=== PATIENT | male | born 1980 | race Caucasian/White ===

== ENCOUNTER 2023-12-21 10:03 | Emergency (ER) | payer OTHER ==
[~2023-12-21] VITALS: Ht 172.7 cm; Wt 68.0 kg
[~2023-12-21 10:03] MED LIST: AMOCLA875 PO; CEPH500 PO; DIVA250EC PO; HYDACE5 PO; INCARCERATION; NAPR500 PO; SULTRIDS PO
[2023-12-21 10:08] VITALS: BP 112/81
[2023-12-21] MEDS ORDERED: Bacitracin Zinc Oint 1GRAM UD Packet TOP ONE (10:20)
== END 2023-12-21 11:11 | disposition home or self-care (01) ==
LOC: ER 10:03
DX: S61.412A Laceration without foreign body of left hand, initial encounter (principal); S51.012A Laceration without foreign body of left elbow, initial encounter; S86.912A Strain of unspecified muscle(s) and tendon(s) at lower leg level, left leg, initial encounter; F17.210 Nicotine dependence, cigarettes, uncomplicated; W01.0XXA Fall on same level from slipping, tripping and stumbling without subsequent striking against object, initial encounter; Z79.1 Long term (current) use of non-steroidal anti-inflammatories (NSAID); Z88.0 Allergy status to penicillin
CPT/HCPCS: 73080; 73590; 99283-25